=== PATIENT | male | born 1950 | race Caucasian/White ===

== ENCOUNTER → 2018-01-23 | Outpatient (CLI) | payer OTHER ==
[~2018-01-23] MED LIST: REGADENOSON 0.4 MG/5 ML SYRINGE IV ONE
--- NOTE | 2018-01-23 11:38 | NM ---
"EXAMINATION TYPE: NM stress lexiscan cardiolite DATE OF EXAM: 01/23/2018 COMPARISON: NONE HISTORY: Chest pain, hypertension, diabetes, hyperlipidemia and history of tobacco abuse TECHNIQUE: After the intravenous administration of 10 mCi Tc 99m Sestamibi - Cardiolite resting SPEC T images acquired 45 minutes post injection. The patient received 0.4mg Lexiscan, 26.1 mCi Tc 99m Sestamibi - Stress images obtained [address] injection FINDINGS: Review of stress and rest SPECT images demonstrates a fixed defect of the inferior ventricular wall a nd lateral ventricular wall with reversible defect of the mid segments of the septal wall. There is a ssociated dyskinesis of the inferior wall without significant gastrointestinal or diaphragmatic uptak e adjacent to the inferior wall to indicate artifact. Therefore findings likely relate to remote infa rct. There is an estimated left ventricular ejection fraction of 62 %. TID is calculated at 0.9. IMPRESSION: 1. In addition to a fixed defect of the inferolateral wall from remote infarct there is a reversible mild perfusion defect of the septal wall in the distribution of the left anterior descending coronary artery indicating ischemia. 2. Estimated left ventricular ejection fraction of 62%. A Yellow level critical message alert has been initiated for Dev Ruiz MD via the [employer] 36 0 | Critical Results System on 01/23/2018 11:35 AM. This message alert has been sent to Dev Ruiz MD via the preferences provided by the clinician for the receipt of Radiology Critical Findings. [id number]."
--- NOTE | 2018-01-23 12:30 | EST ---
EXERCISE STRESS DATE OF SERVICE: 01/23/2018 AGE: 67 SEX: M HT: 6'0" WT: 330 PROTOCOL: Lexiscan Cardiolite Stress Test HEART RATE REST: 78 BLOOD PRESSURE REST: 142/84 MAXIMUM HEART RATE ACHIEVED: 95 MAXIMUM BLOOD PRESSURE: 142/84 INDICATIONS: Chest pain. CLINICAL INFORMATION: STRESS DATA: Pretesting physical examination showed heart rate of 78, pressure is 142/84 mmHg. Baseline EKG showed sinus mechanism; 0.4 mg of Lexiscan was given over 15 seconds per protocol. The max heart rate was 95 beats per minute. Maximum pressure was 142/84 mmHg. Clinically, the patient did not have any symptoms of chest pain or discomfort and the EKG did not show any significant ST or T-wave abnormalities. CONCLUSION: 1. Nondiagnostic electrocardiogram stress test. 2. Please follow up on the Cardiolite portion on separate report. MMODL / IJN: [id number] /
--- NOTE | 2018-01-24 14:04 | ECHOF ---
Referral Reason:R07.9 Chest Pain MEASUREMENTS -------- HEIGHT: 182.9 cm WEIGHT: 149.7 kg BP: RVIDd: 3.9 cm (< 3.3) IVSd: 1.0 cm (0.6 - 1.1) LVIDd: 5.5 cm (3.9 - 5.3) LVPWd: 1.1 cm (0.6 - 1.1) IVSs: 1.3 cm LVIDs: 3.6 cm LVPWs: 1.3 cm LAESV Index (A-L): 23.76 ml/m Ao Diam: 3.5 cm (2.0 - 3.7) AV Cusp: 2.0 cm (1.5 - 2.6) LA Diam: 2.3 cm (2.7 - 3.8) MV E Sean: 0.55 m/s MV DecT: 312 ms MV A Sean: 0.78 m/s MV E/A Ratio: 0.70 RAP: 5.00 mmHg RVSP: 34.42 mmHg FINDINGS -------- Sinus rhythm. This was a technically difficult study with suboptimal views. The left ventricular size is normal. There is borderline concentric left ventricular hypertrophy. Overall left ventricular systolic function is low-normal with, an EF between 50 - 55 %. The right ventricle is moderately enlarged. Normal LA size by volume 22+/-6 ml/m2. RA appears enlarged. 3ml of Lumason was utilized for enhancement of images. Aortic valve is trileaflet and is mildly thickened. There is no evidence of aortic regurgitation. There is no evidence of aortic stenosis. The mitral valve leaflets are mildly thickened. Mild mitral annular calcification present. There is trace to mild mitral regurgitation. Trace tricuspid regurgitation present. There is borderline pulmonary hypertension. The right vent ricular systolic pressure, as measured by Doppler, is 34.42mmHg. Trace/mild (physiologic) pulmonic regurgitation. The aortic root size is normal. IVC Not well visulized. There is no pericardial effusion. CONCLUSIONS -------- 1. Sinus rhythm. 2. This was a technically difficult study with suboptimal views. 3. The left ventricular size is normal. 4. There is borderline concentric left ventricular hypertrophy. 5. Overall left ventricular systolic function is low-normal with, an EF between 50 - 55 %. 6. The right ventricle is moderately enlarged. 7. Normal LA size by volume 22+/-6 ml/m2. 8. RA appears enlarged. 9. 3ml of Lumason was utilized for enhancement of images. 10. Aortic valve is trileaflet and is mildly thickened. 11. The mitral valve leaflets are mildly thickened. 12. Mild mitral annular calcification present. 13. There is trace to mild mitral regurgitation. 14. Trace tricuspid regurgitation present. 15. There is borderline pulmonary hypertension. 16. The right ventricular systolic pressure, as measured by Doppler, is 34.42mmHg. 17. Trace/mild (physiologic) pulmonic regurgitation. 18. The aortic root size is normal. 19. IVC Not well visulized. 20. There is no pericardial effusion. GLOVE EXAMINER: Niko Barros RDCS
== END | disposition home or self-care (01) ==
LOC: RADECHMAIN 08:07
PROVIDERS: ATTEND Family Medicine
DX: I08.1 Rheumatic disorders of both mitral and tricuspid valves (principal); R07.9 Chest pain, unspecified; I25.2 Old myocardial infarction
CPT/HCPCS: 93017; 78452; 93005; C8929; A9500; J2785; Q9950; 93306

== ENCOUNTER → 2018-01-30 | Outpatient (CLI) | payer OTHER ==
[2018-01-30 17:50] LABS: HCT 47.7 % (39.0-53.0); HGB 14.6 gm/dL (13.0-17.5); MCH 28.5 pg (25.0-35.0); MCHC 30.6 g/dL (31.0-37.0); MCV 93.3 fL (80.0-100.0); Platelet Count 286 k/uL (150-450); RBC 5.12 m/uL (4.30-5.90); RDW 13.4 % (11.5-15.5); WBC 7.9 k/uL (3.8-10.6)
[2018-01-30 18:01] LABS: Anion Gap 9 mmol/L; Blood Urea Nitrogen 27 mg/dL (9-20); Carbon Dioxide 28 mmol/L (22-30); Chloride 101 mmol/L (98-107); Sodium 138 mmol/L (137-145)
== END | disposition home or self-care (01) ==
LOC: LABPAT 17:00
PROVIDERS: ATTEND Internal Medicine Cardiovascular Disease
DX: Z01.812 Encounter for preprocedural laboratory examination (principal); E78.2 Mixed hyperlipidemia; I10 Essential (primary) hypertension; R07.2 Precordial pain
CPT/HCPCS: 36415; 80051; 82565; 84520; 85027

== ENCOUNTER 2018-02-25 07:57 | Day surgery (SDC) | payer MEDICARE, OTHER ==
[2018-02-19 14:49] VITALS: BMI 48.8
[~2018-02-25 07:57] MED LIST changes: +ALPRAZolam 0.25 MG TAB PO PRN; +ALPRAZolam 0.5 MG TAB PO PRN; +ASPIRIN 325 MG TAB PO STA; +ATORVASTATIN 80 MG TAB PO STA; +NITROGLYCERIN SL TABS 0.4 MG TAB SUBLINGUAL PRN; -REGADENOSON 0.4 MG/5 ML SYRINGE IV ONE; +SODIUM CHLORIDE 0.9% 1,000 ML IV ONE; +SODIUM CHLORIDE 0.9% 1,000 ML in EMPTY BAG 1 BAG IV ONE
[2018-02-25 08:47] LABS: Glucose,Whole Blood 254 mg/dL (75-99)
[2018-02-25] MEDS ORDERED: INSULIN ASPART 100 UNIT/ML 1 ML 10 ML VIAL SQ ONE ×2 (08:55→09:59)
[2018-02-25] MEDS ORDERED: fentaNYL (PF) 50 MCG/ML 2 ML AMP ONE ×2 (08:59→11:37)
[2018-02-25] MEDS ORDERED: LIDOCAINE 1% INJ 10MG/ML (20 ML MDV) ONE (08:59)
[2018-02-25] MEDS ORDERED: MIDAZOLAM 2 MG/2 ML VIAL ONE ×2 (08:59→11:37)
[2018-02-25] MEDS ORDERED: MIDAZOLAM 2 MG/2 ML VIAL IVP ONE ×3 (09:03→11:48)
[2018-02-25] MEDS ORDERED: fentaNYL (PF) 50 MCG/ML 2 ML AMP IVP ONE ×2 (09:05)
[2018-02-25] MEDS ORDERED: methylPREDNISolone SOD SUCCI 125 MG/2 ML VIAL ONE (09:06)
[2018-02-25] MEDS ORDERED: diphenhydrAMINE 50 MG/ML 1 ML VIAL ONE (09:06)
[2018-02-25] MEDS ORDERED: LIDOCAINE 1% INJ 10MG/ML (20 ML MDV) SQ ONE (09:07)
[2018-02-25] MEDS ORDERED: LIDOCAINE 1% (PF) 10MG/ML VIAL SQ ONE (09:07)
[2018-02-25] MEDS ORDERED: diphenhydrAMINE 50 MG/ML 1 ML VIAL IVP ONE (09:08)
[2018-02-25] MEDS ORDERED: methylPREDNISolone SOD SUCCI 125 MG/2 ML VIAL IVP ONE (09:08)
[2018-02-25] MEDS ORDERED: IOPAMIDOL-370 125ML BTL INJ ONE ×2 (09:36→11:59)
--- NOTE | 2018-02-25 09:58 | CC ---
CARDIAC CATHETERIZATION REPORT INDICATION: Precordial chest pain with abnormal stress test showing ischemia involving the septum. PROCEDURE NOTE: After obtaining informed consent, left heart catheterization and coronary angiogram were performed via the right femoral artery using standard Ammon catheters. Patient tolerated the procedure well without any obvious immediate complications. A femoral angiogram was performed and decision was made for manual hemostasis. Patient received moderate conscious sedation. The total sedation time was 13 minutes. FINDINGS: 1. HEMODYNAMICS: Left ventricular end-diastolic pressure is 14-16 mm. There is no significant gradient across the aortic valve. 2. LEFT VENTRICULOGRAM: Left ventriculogram is not performed. 3. ANGIOGRAPHIC DATA: 4. LEFT MAIN CORONARY ARTERY: Left main coronary artery is a normal-sized vessel and is free of stenosis. It divides into left anterior descending coronary artery and circumflex coronary artery. LAD shows a mild atherosclerotic plaque in its proximal and midportion. Circumflex coronary artery and its branches are free of significant stenosis. Right coronary artery is a large dominant vessel that shows [id number] atherosclerotic plaque involving the proximal part. At its worst, there is a 50%-60% focal stenosis, but there is a long area of irregular ectatic changes. CONCLUSION: A 50%-60% stenosis involving right coronary artery. PLAN: I am going to review the angiographic data with Dr. Benton, the on-call glue drier operator, and decide on whether to do angioplasty of the right coronary artery or treat him with optimal medical therapy. I discussed these issues at length with the patient. He understands and in agreement with the plans. MMMICHELLE / NASIRN: [id number] /
[2018-02-25 10:02] LABS: Glucose,Whole Blood 260 mg/dL (75-99)
[2018-02-25] MEDS ORDERED: BIVALIRUDIN BOLUS 250 MG/50 ML IV ONE (11:48)
[2018-02-25] MEDS ORDERED: IV FLUID CONTINUATION 1,000 ML IV ONE (11:49)
[2018-02-25] MEDS ORDERED: BIVALIRUDIN 250 MG in SODIUM CHLORIDE 0.9% 50 ML IV ONE ×2 (11:50→11:57)
[2018-02-25] MEDS ORDERED: ADENOSINE 180 MG in SODIUM CHLORIDE 0.9% 30 ML IVP ONE (11:59)
[2018-02-25] MEDS ORDERED: RX INFO: IV CONTRAST WAS GIVEN 1 EACH MISC MISCELLANE PRN (12:05)
[2018-02-25] MEDS ORDERED: SODIUM CHLORIDE 0.9% 1,000 ML IV SCH (12:15)
--- NOTE | 2018-02-25 12:28 | CC ---
CARDIAC CATHETERIZATION REPORT FRACTIONAL FLOW RESERVE: DATE OF SERVICE: 02/25/2018 PERFORMING PHYSICIAN: Haja Benton MD, Lead Setter. PROCEDURE PERFORMED: Fractional flow reserve of the RCA. INDICATION: This is a pleasant 67-year-old gentleman who sees Dr. Levy in the office as an outpatient who was experiencing chest discomfort and underwent heart catheterization by Dr. Levy today and that revealed intermediate to severe lesion involving the mid RCA, which seems to be eccentric lesion. Because of that, fractional flow reserve was advised. APPROACH: Right common femoral artery. COMPLICATION: None. LEVEL OF SEDATION: Moderate with sedation length of 15 minutes. PROCEDURE DESCRIPTION: please refer to diagnostic heart catheterization was performed by Dr. Levy earlier today. Anticoagulation was initiated using Angiomax. After zeroing the Doppler wire and equalizing between the Doppler wire and the guiding catheter which was JR4 guiding catheter, we did an FFR per IV adenosine infusion. FFR came in to be 0.86, which is nonischemic. CONCLUSION: Fractional flow reserve (FFR) of the right coronary artery was performed and came in to be nonischemic at 0.86. POSTPROCEDURE MANAGEMENT: Medical treatment and follow up with the patient. MMODL / IJN: [id number] /
[2018-02-25 17:45] LABS: Glucose,Whole Blood 365 mg/dL (75-99)
[2018-02-25 23:11] VITALS: BP 115/68; PULSE 97; RESP 18; TEMP 97.9
== END 2018-02-25 22:00 | disposition home or self-care (01) ==
LOC: CATHCVL 07:57 → 3OBS 12:01 → CATHCVL 22:00
PROVIDERS: ATTEND Internal Medicine Cardiovascular Disease
DX: I25.10 Atherosclerotic heart disease of native coronary artery without angina pectoris (principal); R94.39 Abnormal result of other cardiovascular function study; E78.2 Mixed hyperlipidemia; I10 Essential (primary) hypertension; E11.9 Type 2 diabetes mellitus without complications; I48.91 Unspecified atrial fibrillation; E66.9 Obesity, unspecified; Z68.42 Body mass index [BMI] 45.0-49.9, adult; Z79.84 Long term (current) use of oral hypoglycemic drugs; Z79.82 Long term (current) use of aspirin; Z79.899 Other long term (current) drug therapy; Z88.5 Allergy status to narcotic agent; Z91.09 Other allergy status, other than to drugs and biological substances
CPT/HCPCS: 93571; 93454; 93458; C1887; C1894 ×2; C1769; J2250; J1200; J2930; J2001 ×2; J3010; J0583; J0153; Q9967

== ENCOUNTER → 2018-04-01 | Outpatient (CLI) | payer MEDICARE, OTHER ==
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
[2018-04-01 16:15] VITALS: BP 139/87; PULSE 81; TEMP 98; BMI 49.4
== END | disposition home or self-care (01) ==
LOC: BARWHC3 14:03
PROVIDERS: ATTEND Surgery
DX: E66.01 Morbid (severe) obesity due to excess calories (principal); Z87.891 Personal history of nicotine dependence; Z68.42 Body mass index [BMI] 45.0-49.9, adult
CPT/HCPCS: 99211

== ENCOUNTER → 2018-12-15 | Outpatient (CLI) | payer MEDICARE, OTHER ==
--- NOTE | 2018-12-15 17:54 | CT ---
EXAMINATION TYPE: CT abdomen pelvis wo con DATE OF EXAM: 12/15/2018 COMPARISON: 05/26/2016 INDICATION: Generalized abdominal pain, constipated. R 10.9, R 10.64 DLP: 3177 mGycm, Automated exposure control for dose reduction was used. CONTRAST: None Study performed with Oral Contrast TECHNIQUE: Axial images were obtained from above the diaphragm to the pubic rami in the axial plane a t 5 mm thick sections. Reconstructed images are reviewed on the computer in the coronal plane. FINDINGS: Limited CT sections are obtained the lung bases. The lung bases are clear. Coronary artery calcific ation is present. CT ABDOMEN: Liver: Normal Spleen: Normal Pancreas: Normal Adrenal glands: Right adrenal gland is a 1.4 cm transverse thickening of the external limb. The left adrenal gland appears unremarkable. Gallbladder: Gallstones are present. Kidneys: No masses are evident. No hydronephrosis is present. There is a 6 cm cyst measuring 20 Luke nsfield units on the mid to inferior lateral left kidney. No renal stones are evident. Aorta: Vascular calcification is within the aorta. Inferior vena cava: Normal. CT PELVIS: Loops of bowel within the abdomen and pelvis are normal. There are loops of bowel which are incom pletely distended or lack oral contrast limiting their evaluation. Fecal debris is within the ascendi ng colon and proximal transverse colon. Some equilibrium is within the distal colon. Appendix: Not visualized. No suspicious inflammatory changes or dilated tubular structures are eviden t. Urinary bladder: Normal. Genitourinary structures: Prostate calcification is present. Osseous structures: No suspicious lytic or sclerotic lesions. There is a left hip medullary alirio. Dege nerative disc changes are within the lower lumbar spine IMPRESSIONS: 1. There may be a small adenoma on the right adrenal gland. 2. Cholelithiasis. 3. Mild fecal retention.
== END | disposition home or self-care (01) ==
LOC: RADCTMAIN 09:53
PROVIDERS: ATTEND Family Medicine
DX: K80.20 Calculus of gallbladder without cholecystitis without obstruction (principal); K59.00 Constipation, unspecified; Z88.5 Allergy status to narcotic agent; Z91.048 Other nonmedicinal substance allergy status
CPT/HCPCS: 74176

== ENCOUNTER 2018-12-29 12:19 | Emergency (ER) | payer MEDICARE, OTHER ==
[2018-12-29 12:45] VITALS: BP 116/80; PULSE 83; RESP 20; TEMP 98.9
--- NOTE | 2018-12-29 15:03 | XR ---
EXAMINATION TYPE: XR KUB DATE OF EXAM: 12/29/2018 COMPARISON: NONE HISTORY: Pain TECHNIQUE: Single supine KUB image of the abdomen is obtained FINDINGS: Small bowel demonstrates no evidence for dilatation or air fluid levels. Gas and fecal material is seen in non-distended colon. No convincing evidence for pneumoperitoneum. No unusual calcifications. The lung bases are clear. The osseous structures are intact. IMPRESSION: 1. Overall nonobstructive bowel gas pattern.
[2018-12-29] MEDS ORDERED: MAGNESIUM CITRATE 296 ML BOTTLE PO ONE (15:52)
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
== END 2018-12-29 16:05 | disposition home or self-care (01) ==
LOC: EC 12:19
DX: K59.00 Constipation, unspecified (principal); Z53.29 Procedure and treatment not carried out because of patient's decision for other reasons; I48.91 Unspecified atrial fibrillation; E11.9 Type 2 diabetes mellitus without complications; E78.5 Hyperlipidemia, unspecified; I10 Essential (primary) hypertension; M19.90 Unspecified osteoarthritis, unspecified site; Z86.711 Personal history of pulmonary embolism; Z86.718 Personal history of other venous thrombosis and embolism; Z87.891 Personal history of nicotine dependence; Z79.82 Long term (current) use of aspirin; Z79.84 Long term (current) use of oral hypoglycemic drugs; Z79.899 Other long term (current) drug therapy; Z88.5 Allergy status to narcotic agent; Z88.8 Allergy status to other drugs, medicaments and biological substances; Z91.048 Other nonmedicinal substance allergy status; Z96.652 Presence of left artificial knee joint
CPT/HCPCS: 74018; 99284

== ENCOUNTER 2019-01-02 15:09 | Emergency (ER) | payer MEDICARE, OTHER ==
[2019-01-02 15:22] VITALS: RESP 18
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
--- NOTE | 2019-01-02 17:35 | XR ---
EXAMINATION TYPE: XR abdomen complete w decub total 5 views DATE OF EXAM: 01/02/2019 COMPARISON: NONE HISTORY: Pain, impacted/constipated TECHNIQUE: Left lateral decubitus and supine and upright views were obtained. FINDINGS: There is no evidence for pneumoperitoneum. The bowel gas pattern is unremarkable as there is air throughout nondilated small and large bowel. T he volume of stool appears mildly prominent. No sizeable air fluid levels. No mass effects are seen. No unusual calcifications. IMPRESSION: No acute radiographic process.
[2019-01-02 19:47] VITALS: BP 110/87; PULSE 86; TEMP 98.5
[2019-01-02] MEDS ORDERED: LACTULOSE 20 GM/30 ML CUP PO ONE (20:00)
== END 2019-01-02 19:53 | disposition home or self-care (01) ==
LOC: EC 15:09
DX: K59.00 Constipation, unspecified (principal); I48.91 Unspecified atrial fibrillation; E11.9 Type 2 diabetes mellitus without complications; E78.5 Hyperlipidemia, unspecified; I10 Essential (primary) hypertension; M19.90 Unspecified osteoarthritis, unspecified site; Z96.652 Presence of left artificial knee joint; Z87.891 Personal history of nicotine dependence; Z79.82 Long term (current) use of aspirin; Z79.84 Long term (current) use of oral hypoglycemic drugs; Z79.899 Other long term (current) drug therapy; Z88.5 Allergy status to narcotic agent; Z91.048 Other nonmedicinal substance allergy status
CPT/HCPCS: 74021; 99284

== ENCOUNTER 2019-03-26 12:23 | Day surgery (SDC) | payer MEDICARE, OTHER ==
[2019-03-24 12:52] VITALS: BMI 45.4
[~2019-03-26 12:23] MED LIST changes: -ALPRAZolam 0.25 MG TAB PO PRN; -ALPRAZolam 0.5 MG TAB PO PRN; -ASPIRIN 325 MG TAB PO STA; -ATORVASTATIN 80 MG TAB PO STA; +LACTATED RINGERS 1,000 ML IV SCH; -NITROGLYCERIN SL TABS 0.4 MG TAB SUBLINGUAL PRN; -SODIUM CHLORIDE 0.9% 1,000 ML IV ONE; -SODIUM CHLORIDE 0.9% 1,000 ML in EMPTY BAG 1 BAG IV ONE
[2019-03-26 12:56] VITALS: RESP 16; TEMP 97.5
[2019-03-26] MEDS ORDERED: LIDOCAINE 1% 20 ML VIAL (10MG/ML) FOR IV START INTRADERMA ONE (13:01)
[2019-03-26 13:04] LABS: Glucose,Whole Blood 116 mg/dL (75-99)
[2019-03-26] MEDS ORDERED: PROPOFOL 10 MG/ML 20 ML VIAL IV ONE (13:50)
[2019-03-26] MEDS ORDERED: LIDOCAINE 1% INJ 10MG/ML (20 ML MDV) ONE (13:50)
--- NOTE | 2019-03-26 14:20 | P.PCN ---
Date of Procedure: 03/26/19 Procedure(s) Performed: PREOPERATIVE DIAGNOSIS: GERD, change in bowel habits POSTOPERATIVE DIAGNOSIS: Minimal gastritis, diverticulosis, rectal polyp PROCEDURE: 1. EGD with biopsy 2. Colonoscopy with snare polypectomy ANESTHESIA: MAC SURGEON: Orestes Bernal M.D. SPECIMENS: Antrum, rectal polyp ENDOSCOPIC PROCEDURE: The patient was on the endoscopy table in the left decubitus position. The Olympus gastroscope was inserted into the oropharynx and passed under direct visualization to the region of the third portion of the duodenum. From that point the scope was slowly withdrawn inspecting all surfaces carefully. There were no neoplastic inflammatory or polypoid lesions throughout the duodenum. The pylorus was widely patent. The stomach was carefully inspected. There was minimal gastritis present. A biopsy of the antrum took place to rule out H. pylori. Retroflexion revealed a normal hiatus. The esophagus was then carefully examined. There were no neoplastic inflammatory or polypoid lesions throughout the visualized esophagus. The patient was kept on the endoscopy table in the left decubitus position. The Olympus colonoscope was inserted into the anus and passed under direct visualization to the base of the cecum. The appendiceal orifice was visualized. From that point the scope was slowly withdrawn inspecting all surfaces carefully. There were no neoplastic inflammatory or polypoid lesions throughout the cecum, ascending, transverse, descending, and sigmoid colon. In the rectum a small polyp was identified and removed using the snare with cautery technique. The remainder of the rectum was normal. There was mild left-sided diverticulosis present. Digital rectal examination was normal. The patient was taken to the recovery room in stable condition per anesthesia guidelines. RECOMMENDATIONS: Await biopsy results. Anticipate follow-up colonoscopy 5 years.
[2019-03-26 14:31] VITALS: PULSE 86
[2019-03-26 14:42] VITALS: BP 114/87
== END 2019-03-26 14:58 | disposition home or self-care (01) ==
LOC: ORWHC2ENDO 12:23
PROVIDERS: ATTEND Surgery
DX: K29.50 Unspecified chronic gastritis without bleeding (principal); D12.8 Benign neoplasm of rectum; K57.30 Diverticulosis of large intestine without perforation or abscess without bleeding; K21.9 Gastro-esophageal reflux disease without esophagitis; I10 Essential (primary) hypertension; E78.5 Hyperlipidemia, unspecified; E11.9 Type 2 diabetes mellitus without complications; K80.20 Calculus of gallbladder without cholecystitis without obstruction; M19.90 Unspecified osteoarthritis, unspecified site; I48.91 Unspecified atrial fibrillation; E66.01 Morbid (severe) obesity due to excess calories; Z68.42 Body mass index [BMI] 45.0-49.9, adult; Z86.718 Personal history of other venous thrombosis and embolism; Z86.711 Personal history of pulmonary embolism; Z87.891 Personal history of nicotine dependence; Z98.84 Bariatric surgery status; Z98.49 Cataract extraction status, unspecified eye; Z79.82 Long term (current) use of aspirin; Z79.899 Other long term (current) drug therapy; Z79.84 Long term (current) use of oral hypoglycemic drugs; Z88.5 Allergy status to narcotic agent; Z91.048 Other nonmedicinal substance allergy status
CPT/HCPCS: 88305; 45385; 43239; J2001; J2704

== ENCOUNTER → 2019-06-25 | Outpatient (CLI) | payer MEDICARE, OTHER ==
[2019-06-25 15:51] VITALS: BP 138/81; PULSE 68; TEMP 98.7; BMI 46.5
[2019-06-25 18:03] LABS: HCT 47.4 % (39.0-53.0); HGB 15.3 gm/dL (13.0-17.5); MCH 30.1 pg (25.0-35.0); MCHC 32.3 g/dL (31.0-37.0); Mean Platelet Volume 8.7; Platelet Count 315 k/uL (150-450); RBC 5.09 m/uL (4.30-5.90); WBC 9.2 k/uL (3.8-10.6)
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
[2019-06-26 00:11] LABS: African American GFR (CKD) 107.1 (60.0-200.0); Albumin 4.6 g/dL (3.80-4.90); Albumin/Globulin Ratio 2.19 (1.60-3.17); Anion Gap 10.1 mmol/L (4.00-12.00); BUN/Creat Ratio 17.5 Ratio (12.00-20.00); Calcium 9.7 mg/dL (8.7-10.3); Carbon Dioxide 27.9 mmol/L (21.6-31.8); Globulin 2.1 g/dL (1.6-3.3); Non-African American GFR(CKD) 92.4 (60.0-200.0); Potassium 4.5 mmol/L (3.5-5.5); Total Bilirubin 0.6 mg/dL (0.2-1.2); Total Protein 6.7 g/dL (6.2-8.2)
[2019-06-26 00:20] LABS: Folate, Serum 5.9 ng/mL
== END | disposition home or self-care (01) ==
LOC: BARWHC3 14:27
PROVIDERS: ATTEND Surgery
DX: E66.01 Morbid (severe) obesity due to excess calories (principal); F17.200 Nicotine dependence, unspecified, uncomplicated; Z68.42 Body mass index [BMI] 45.0-49.9, adult; Z90.49 Acquired absence of other specified parts of digestive tract; K90.89 Other intestinal malabsorption; E55.9 Vitamin D deficiency, unspecified
CPT/HCPCS: 84425; 80053; 82607; 82746; 83540; 85027; 82306; 83036; 93005; 36415; G0463; 99211

== ENCOUNTER 2019-10-09 16:13 | Inpatient (IN) | payer MEDICARE, OTHER ==
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
[2019-10-09] MEDS ORDERED: DILTIAZEM DRIP BOLUS FROM BAG 1 MG SOLN IV ONE (16:47)
[2019-10-09 16:53] LABS: Basophils % (A) 0 %; Eosinophils # (A) 0.3 k/uL (0-0.7); Eosinophils % (A) 3 %; HCT 48.5 % (39.0-53.0); HGB 15.8 gm/dL (13.0-17.5); Lymphocytes # (A) 2.6 k/uL (1.0-4.8); Lymphocytes % (A) 28 %; MCH 30.4 pg (25.0-35.0); MCHC 32.5 g/dL (31.0-37.0); MCV 93.5 fL (80.0-100.0); Mean Platelet Volume 9.1; Monocytes # (A) 0.6 k/uL (0-1.0); Monocytes % (A) 6 %; Neutrophils # (A) 5.7 k/uL (1.3-7.7); Neutrophils % (A) 60 %; Platelet Count 328 k/uL (150-450); RBC 5.19 m/uL (4.30-5.90); RDW 13.2 % (11.5-15.5); WBC 9.5 k/uL (3.8-10.6)
[2019-10-09] MEDS ORDERED: DILTIAZEM 125 MG in SODIUM CHLORIDE 0.9% 100 ML IV SCH (17:00)
[2019-10-09 17:01] LABS: Prothrombin Time 10.4 sec (9.0-12.0)
--- NOTE | 2019-10-09 17:02 | XR ---
EXAMINATION TYPE: XR chest 2V DATE OF EXAM: 10/09/2019 COMPARISON: 07/29/2014 HISTORY: 69-year-old male dysrhythmia TECHNIQUE: PA and lateral views FINDINGS: Heart borderline enlarged. Mild elongation/ectasia of the thoracic aorta. Strandy atelectasis lower l ungs. No consolidation or pleural effusion. IMPRESSION: Borderline heart size. Strandy bibasilar atelectasis. Otherwise, no definite acute process.
[2019-10-09 17:06] LABS: ALT 24 U/L (4-49); AST 25 U/L (17-59); African American GFR (CKD) >90 (>60 ml/min/1.73 sqM); Albumin 4.3 g/dL (3.5-5.0); Alkaline Phosphatase 59 U/L (38-126); Anion Gap 8 mmol/L; Blood Urea Nitrogen 18 mg/dL (9-20); Calcium 9.7 mg/dL (8.4-10.2); Carbon Dioxide 26 mmol/L (22-30); Chloride 104 mmol/L (98-107); Glucose 101 mg/dL (74-99); Non-African American GFR(CKD) >90 (>60 ml/min/1.73 sqM); Potassium 4.5 mmol/L (3.5-5.1); Sodium 138 mmol/L (137-145); Total Bilirubin 0.8 mg/dL (0.2-1.3); Total Protein 7.3 g/dL (6.3-8.2)
[2019-10-09] MEDS ORDERED: HEPARIN SODIUM,PORCINE 5,000 UNIT/ML 1 ML VIAL IV ONE (17:41)
[2019-10-09] MEDS ORDERED: HEPARIN SOD,PORK IN 0.45% NACL 25,000 UNIT in 0.45% NACL 1 250ML.BAG IV SCH (17:45)
[2019-10-09 19:35] LABS: Glucose,Whole Blood 100 mg/dL (75-99)
[2019-10-09] MEDS ORDERED: ATORVASTATIN 40 MG TAB PO SCH (21:00)
[2019-10-09] MEDS ORDERED: ASCORBIC ACID 2000 MG PO SCH (21:00)
[2019-10-09] MEDS: INSULIN ASPART (NovoLOG) 100 UNIT/ML VIAL SQ SCH (22:01)
[2019-10-10] MEDS ORDERED: ACETAMINOPHEN TAB 325 MG TAB PO PRN ×2 (03:29→04:09)
[2019-10-10 06:09] LABS: Glucose,Whole Blood 131 mg/dL (75-99)
[2019-10-10] MEDS: INSULIN ASPART (NovoLOG) 100 UNIT/ML VIAL SQ SCH ×3 (06:10→15:20)
[2019-10-10] MEDS: GLIMEPIRIDE 4 MG TAB PO SCH ×2 (06:30→15:20)
[2019-10-10] MEDS: LISINOPRIL 20 MG TAB PO SCH ×2 (08:11→11:50)
[2019-10-10] MEDS ORDERED: PANTOPRAZOLE 40 MG TABLET PO SCH (09:00)
[2019-10-10] MEDS ORDERED: CHOLECALCIFEROL 1,000 UNIT TAB PO SCH (09:00)
[2019-10-10] MEDS ORDERED: CYANOCOBALAMIN 500 MCG TAB PO SCH (09:00)
[2019-10-10] MEDS ORDERED: ASPIRIN 81 MG PO SCH (09:00)
[2019-10-10] MEDS ORDERED: METOPROLOL TARTRATE 25 MG TAB PO SCH (10:00)
[2019-10-10] MEDS ORDERED: APIXABAN 5 MG TAB PO SCH (10:00)
[2019-10-10 10:22] VITALS: RESP 18
[2019-10-10 11:28] LABS: Glucose,Whole Blood 161 mg/dL (75-99)
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
--- NOTE | 2019-10-10 13:14 | ECHOF ---
Referral Reason:afib MEASUREMENTS -------- HEIGHT: 182.9 cm WEIGHT: 158.8 kg BP: RVIDd: 4.6 cm (< 3.3) IVSd: 1.5 cm (0.6 - 1.1) LVIDd: 4.7 cm (3.9 - 5.3) LVPWd: 1.3 cm (0.6 - 1.1) IVSs: 2.0 cm LVIDs: 3.0 cm LVPWs: 1.7 cm LAESV Index (A-L): 24.21 ml/m Ao Diam: 3.4 cm (2.0 - 3.7) AV Cusp: 2.6 cm (1.5 - 2.6) MV EXCURSION: 19.913 mm (> 18.000) MV EF SLOPE: 114 mm/s (70 - 150) EPSS: 0.5 cm RAP: 5.00 mmHg RVSP: 23.58 mmHg FINDINGS -------- Atrial fibrillation. This was a technically difficult study with suboptimal views. Morbid Obesity The left ventricular size is normal. There is moderate concentric left ventricular hypertrophy. O verall left ventricular systolic function is low-normal with, an EF between 50 - 55 %. Left ventric ular fillimg pressure cannot be estimated due to Atrial fibrillation. The right ventricle is moderate to severely enlarged. Normal LA size by volume 22+/-6 ml/m2. The right atrium was not well visualized. 5.0mg of Lumason was utilized for enhancement of images Interatrial and interventricular septum intact. The aortic valve was not well visualized. There is no evidence of aortic regurgitation. There is no evidence of aortic stenosis. Mild mitral regurgitation is present. Mild tricuspid regurgitation present. There is no evidence of pulmonary hypertension. The right v entricular systolic pressure, as measured by Doppler, is 23.58mmHg. There is no pulmonic regurgitation present. The aortic root size is normal. IVC Not well visulized. There is no pericardial effusion. CONCLUSIONS -------- 1. Atrial fibrillation. 2. This was a technically difficult study with suboptimal views. 3. Morbid Obesity 4. The left ventricular size is normal. 5. There is moderate concentric left ventricular hypertrophy. 6. Overall left ventricular systolic function is low-normal with, an EF between 50 - 55 %. 7. Left ventricular fillimg pressure cannot be estimated due to Atrial fibrillation. 8. The right ventricle is moderate to severely enlarged. 9. Normal LA size by volume 22+/-6 ml/m2. 10. The right atrium was not well visualized. 11. 5.0mg of Lumason was utilized for enhancement of images 12. Interatrial and interventricular septum intact. 13. The aortic valve was not well visualized. 14. There is no evidence of aortic regurgitation. 15. There is no evidence of aortic stenosis. 16. Mild mitral regurgitation is present. 17. Mild tricuspid regurgitation present. 18. There is no evidence of pulmonary hypertension. 19. The right ventricular systolic pressure, as measured by Doppler, is 23.58mmHg. 20. There is no pulmonic regurgitation present. 21. The aortic root size is normal. 22. IVC Not well visulized. 23. There is no pericardial effusion. [employer]IATE: Tawny Ray RDCS
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
[2019-10-10 14:27] VITALS: BP 119/51; PULSE 75; TEMP 97.7
[2019-10-11] MEDS ORDERED: LISINOPRIL 10 MG TAB PO SCH (09:00)
== END 2019-10-10 16:08 | disposition home or self-care (01) | DRG 309 ==
LOC: EC 16:13 → 3SCARD 17:43
PROVIDERS: ADMIT Hospitalist; ATTEND Hospitalist
DX: I48.0 Paroxysmal atrial fibrillation (principal); Z68.42 Body mass index [BMI] 45.0-49.9, adult; Z11.59 Encounter for screening for other viral diseases; E11.9 Type 2 diabetes mellitus without complications; E66.9 Obesity, unspecified; E78.5 Hyperlipidemia, unspecified; F41.9 Anxiety disorder, unspecified; H91.90 Unspecified hearing loss, unspecified ear; I10 Essential (primary) hypertension; K59.00 Constipation, unspecified; E86.0 Dehydration; I25.10 Atherosclerotic heart disease of native coronary artery without angina pectoris; Z79.01 Long term (current) use of anticoagulants; Z79.82 Long term (current) use of aspirin; Z79.84 Long term (current) use of oral hypoglycemic drugs; Z79.899 Other long term (current) drug therapy; Z80.0 Family history of malignant neoplasm of digestive organs; Z80.8 Family history of malignant neoplasm of other organs or systems; Z86.711 Personal history of pulmonary embolism; Z86.718 Personal history of other venous thrombosis and embolism; Z87.891 Personal history of nicotine dependence; Z96.652 Presence of left artificial knee joint; M19.90 Unspecified osteoarthritis, unspecified site; Z98.42 Cataract extraction status, left eye; Z98.41 Cataract extraction status, right eye; N28.1 Cyst of kidney, acquired; L40.9 Psoriasis, unspecified; Z88.8 Allergy status to other drugs, medicaments and biological substances; Z88.5 Allergy status to narcotic agent; Z98.890 Other specified postprocedural states
CPT/HCPCS: 36415; 71046; 80053; 83735; 83880; 84443; 84484; 85025; 85610; 85730; 87635; 93005; 93306; 96365; 96366; 96368; 96376; 99291

== ENCOUNTER 2019-12-07 16:36 | Inpatient (IN) | payer MEDICARE, OTHER ==
[2019-12-07 17:19] LABS: Basophils % (A) 0 %; Eosinophils # (A) 0.3 k/uL (0-0.7); Eosinophils % (A) 4 %; HCT 50.8 % (39.0-53.0); HGB 16.2 gm/dL (13.0-17.5); Lymphocytes # (A) 2.2 k/uL (1.0-4.8); Lymphocytes % (A) 23 %; MCH 29.2 pg (25.0-35.0); MCV 91.3 fL (80.0-100.0); Monocytes # (A) 0.6 k/uL (0-1.0); Monocytes % (A) 6 %; Neutrophils # (A) 6.1 k/uL (1.3-7.7); Neutrophils % (A) 64 %; Platelet Count 294 k/uL (150-450); RBC 5.56 m/uL (4.30-5.90); RDW 13.3 % (11.5-15.5); WBC 9.5 k/uL (3.8-10.6)
[2019-12-07 17:27] LABS: INR 1.1 (<1.2); Partial Thromboplastin Time 24.9 sec (22.0-30.0); Prothrombin Time 10.9 sec (9.0-12.0)
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
--- NOTE | 2019-12-07 18:12 | XR ---
EXAMINATION TYPE: XR chest 2V DATE OF EXAM: 12/07/2019 COMPARISON: 10/09/2019 HISTORY: Short of breath TECHNIQUE: FINDINGS: Heart and mediastinum are normal. Lungs are clear. Diaphragm is normal. Bony thorax appears normal. IMPRESSION: Normal chest. No change.
[2019-12-07 18:24] LABS: ALT 20 U/L (4-49); AST 33 U/L (17-59); African American GFR (CKD) >90 (>60 ml/min/1.73 sqM); Albumin 4.4 g/dL (3.5-5.0); Alkaline Phosphatase 65 U/L (38-126); Anion Gap 11 mmol/L; Blood Urea Nitrogen 17 mg/dL (9-20); Calcium 9.8 mg/dL (8.4-10.2); Carbon Dioxide 24 mmol/L (22-30); Chloride 104 mmol/L (98-107); Glucose 103 mg/dL (74-99); Magnesium 1.9 mg/dL (1.6-2.3); Non-African American GFR(CKD) >90 (>60 ml/min/1.73 sqM); Potassium 4.7 mmol/L (3.5-5.1); Sodium 139 mmol/L (137-145); Total Bilirubin 1.1 mg/dL (0.2-1.3); Total Protein 7.6 g/dL (6.3-8.2)
[2019-12-07] MEDS ORDERED: DILTIAZEM DRIP BOLUS FROM BAG 1 MG SOLN IV ONE (20:34)
[2019-12-07] MEDS ORDERED: DILTIAZEM 125 MG in SODIUM CHLORIDE 0.9% 100 ML IV SCH (20:45)
[2019-12-07] MEDS ORDERED: NALOXONE 0.4 MG/ML 1 ML VIAL IV PRN (21:32)
[2019-12-07] MEDS ORDERED: SODIUM CHLORIDE 0.9% 1,000 ML IV SCH (21:45)
[2019-12-07 23:02] LABS: Glucose,Whole Blood 99 mg/dL (75-99)
[2019-12-08] MEDS ORDERED: GLIMEPIRIDE 4 MG TAB PO SCH (07:30)
[2019-12-08 08:05] LABS: Glucose,Whole Blood 119 mg/dL (75-99)
[2019-12-08] MEDS: APIXABAN 5 MG TAB PO SCH ×2 (08:06→23:06)
[2019-12-08] MEDS: ASPIRIN 81 MG PO SCH (08:06)
[2019-12-08] MEDS: ATORVASTATIN 40 MG TAB PO SCH (08:07)
[2019-12-08] MEDS: diazePAM 5 MG TAB PO SCH ×2 (08:07→23:07)
[2019-12-08] MEDS: INSULIN ASPART (NovoLOG) 100 UNIT/ML VIAL SQ SCH ×4 (08:08→23:07)
[2019-12-08] MEDS ORDERED: lisinopriL 20 MG TAB PO SCH (09:00)
[2019-12-08] MEDS ORDERED: AMIODARONE 360 MG in DEXTROSE 5% IN WATER 200 ML IV ONE ×2 (10:00)
[2019-12-08] MEDS ORDERED: DEXTROSE 5% IN WATER 100 ML with AMIODARONE 150 MG IV ONE (10:00)
[2019-12-08] MEDS: metFORMIN 500 MG TAB PO SCH ×2 (10:59→17:23)
[2019-12-08] MEDS: METOPROLOL SUCCINATE (ER) 25 MG TAB.ER.24H PO SCH (11:00)
[2019-12-08] MEDS: PANTOPRAZOLE 40 MG TABLET PO SCH (11:00)
[2019-12-08] MEDS: ESCITALOPRAM 5 MG TAB PO SCH (11:00)
[2019-12-08 11:26] LABS: Glucose,Whole Blood 142 mg/dL (75-99)
[2019-12-08] MEDS: SODIUM CHLORIDE 0.9% 1,000 ML IV SCH (13:58)
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
--- NOTE | 2019-12-08 14:55 | CONS ---
MARGARET Clarke is a 69-year-old gentleman with history of morbid obesity, hypertension, non- insulin-dependent diabetes, and paroxysmal atrial fibrillation who presents to hospital complaining of palpitations. The patient has had sustained palpitations over the last several weeks. He has known coronary artery disease involving right coronary artery that we are managing him medically. A recent echocardiogram on him shows an ejection fraction of 50-55 percent. The patient was admitted to hospital last month with episodes of paroxysmal atrial fibrillation. Patient underwent cardioversion once in the past. An EKG on this admission revealed that he is in atrial fibrillation with rapid ventricular rate. At the time of my evaluation, his heart rate is better controlled on Cardizem. The patient was started on Eliquis at his last visit and was sent home. At the time of my , he remains in AFIB with controlled ventricular rate. I advised the patient to undergo cardioversion, but I will first try him on IV amiodarone. Past medical history significant for persistent atrial fibrillation, hypertension, diabetes Medications at home include metformin, Protonix, Toprol-XL 25 daily, lisinopril 20 daily, Amaryl, Valium, Lipitor, aspirin, Eliquis, Lexapro. The patient is ALLERGIC TO CODEINE, IODINE, AND ADHESIVES. Family history is negative for premature coronary artery disease. Social history is negative for current smoking, EtOH abuse, or drug abuse. REVIEW OF SYSTEMS: HEENT is unremarkable. Cardiac as described above. Respiratory as described above. GI negative. negative. ALLERGY none. IMMUNOLOGY: Negative. SKIN negative. MUSCULOSKELETAL significant for arthritis. PSYCHOSOCIAL negative. ENDOCRINE negative. DERM negative. CONSTITUTIONAL: Negative. ONCOLOGICAL: Negative INCREMENT MANAGER negative. Rest of the system review is not relevant. On exam, comfortable at rest. Vital signs are stable. There is no jugular venous distention. Carotid upstroke is normal. There is no bruit. Chest exam reveals good air entry bilaterally. Heart exam reveals first and second heart sounds, irregular rhythm. No murmur. Abdomen is soft. Exam of extremities did not reveal any edema. Peripheral pulses are felt. He has chronic skin changes over the left leg. Labs show a hemoglobin of 16.2, platelet count is 294. Potassium is 4.7, creatinine is 0.6. Troponin is negative. ASSESSMENT: 1. Persistent atrial fibrillation with poorly controlled ventricular rate. 2. Hypertension. 3. Diabetes. 4. Morbid obesity. PLAN: Patient will be started on IV amiodarone. Continue his current medications. If he does not convert to sinus rhythm by tomorrow, we will consider AYSHA cardioversion. KIMBERLY / ENEDELIA: [id number] /
[2019-12-08 17:17] LABS: Glucose,Whole Blood 117 mg/dL (75-99)
[2019-12-08] MEDS: AMIODARONE 300 MG in DEXTROSE 5% IN WATER 250 ML IV SCH ×2 (17:52)
[2019-12-08 20:10] LABS: Glucose,Whole Blood 124 mg/dL (75-99)
[2019-12-08 21:48] LABS: Glucose,Whole Blood 157 mg/dL (75-99)
[2019-12-09] MEDS: SODIUM CHLORIDE 0.9% 1,000 ML IV SCH (03:26)
[2019-12-09] MEDS: AMIODARONE 300 MG in DEXTROSE 5% IN WATER 250 ML IV SCH ×2 (03:31)
[2019-12-09 06:16] LABS: Glucose,Whole Blood 77 mg/dL (75-99)
[2019-12-09] MEDS: INSULIN ASPART (NovoLOG) 100 UNIT/ML VIAL SQ SCH ×4 (07:15→22:52)
[2019-12-09] MEDS: metFORMIN 500 MG TAB PO SCH ×2 (07:16→17:48)
[2019-12-09 07:53] LABS: Glucose,Whole Blood 92 mg/dL (75-99)
[2019-12-09] MEDS: APIXABAN 5 MG TAB PO SCH ×2 (08:40→22:51)
[2019-12-09] MEDS ORDERED: lisinopriL 20 MG TAB PO SCH (09:00)
[2019-12-09] MEDS ORDERED: PROPOFOL 10 MG/ML 20 ML VIAL IV ONE (09:52)
[2019-12-09] MEDS ORDERED: SENNOSIDES 8.6 MG TAB PO PRN ×2 (10:05→10:14)
[2019-12-09] MEDS ORDERED: IV FLUID CONTINUATION 800 ML IV ONE (10:06)
[2019-12-09] MEDS ORDERED: SODIUM CHLORIDE 0.9% 1,000 ML IV SCH (10:30)
[2019-12-09] MEDS: ESCITALOPRAM 5 MG TAB PO SCH (11:36)
[2019-12-09] MEDS: PANTOPRAZOLE 40 MG TABLET PO SCH (11:37)
[2019-12-09] MEDS: AMIODARONE 200 MG TAB PO SCH ×2 (11:37→22:51)
[2019-12-09] MEDS: ATORVASTATIN 40 MG TAB PO SCH (11:37)
[2019-12-09] MEDS: lisinopriL 5 MG TAB PO SCH (11:37)
[2019-12-09] MEDS: ASPIRIN 81 MG PO SCH (11:37)
[2019-12-09] MEDS: METOPROLOL SUCCINATE (ER) 25 MG TAB.ER.24H PO SCH (11:37)
[2019-12-09 11:41] LABS: Glucose,Whole Blood 121 mg/dL (75-99)
--- NOTE | 2019-12-09 11:58 | PCN ---
PROCEDURE NOTE PROCEDURE: Transesophageal echocardiogram. INDICATIONS: Persistent atrial fibrillation, rule out intracardiac thrombus. This is a 69-year-old gentleman who presented to hospital with atrial fibrillation and had been on Eliquis for more than 3 weeks. I tried him on intravenous amiodarone. He did not convert to sinus rhythm. This morning I performed a transesophageal echo and cardioversion. After obtaining informed consent, transesophageal echocardiogram has been performed in left lateral position using an Omni plane probe. Local and IV sedation were obtained by the networking technician. FINDINGS: 1. There is no intracardiac thrombus within the left atrial appendage, left atrium, right atrium, right ventricle. 2. Left atrium appears severely enlarged. 3. Left ventricle has normal size, shows mild LV systolic dysfunction with an ejection fraction of around 45%. 4. Right atrium, right ventricle seen within normal limits. 5. Mitral valve shows mild to moderate central mitral regurgitation. 6. There is mild tricuspid regurgitation. 7. Aortic valve is a 3-leaflet valve. There is no evidence of aortic stenosis or regurgitation. 8. Aortic root appears normal. 9. Interatrial septum: There is no evidence of oquo-tn-[id number] shunt by color-flow Doppler or atakv-nj-feba shunt by ( ) saline contrast study. CONCLUSION: 1. No intracardiac thrombus. 2. Severe left atrial enlargement. PLAN: Patient will undergo cardioversion. KIMBERLY / IJN: [id number] /
--- NOTE | 2019-12-09 12:01 | PCN ---
PROCEDURE NOTE PROCEDURE: Cardioversion. After obtaining informed consent, making sure that there is no intracardiac thrombus with the transesophageal echo and ensuring that the patient is receiving anticoagulants, patient underwent cardioversion. He received initially 300 joules of synchronized DC current, did not convert to sinus rhythm. Went on to have 360 joules, even with that it was unsuccessful. The plan at this stage is to continue with amiodarone, send him home, bring him back and make another attempt at cardioversion. If that is unsuccessful, we may consider referring him for atrial fibrillation ablation. MMODL / IJN: [id number] /
--- NOTE | 2019-12-09 12:07 | LTR ---
December 09, 2019 to: Dr. Dev Ruiz Re: Vince Yepez Dear Dev, I performed transesophageal and cardioversion on Vince Yepez for persistent atrial fibrillation. A detailed report is enclosed for your records. In brief, we made two attempts at cardioversion but were unsuccessful. I will treat him with oral amiodarone and if he does not convert to sinus rhythm in the outpatient setting I will bring him back and make another attempt at cardioversion. Thank you for giving me the privilege heart sounds pleasant gentleman. Sincerely, MMODL / IJN: [id number] /
[2019-12-09] MEDS ORDERED: DIGOXIN 125 MCG TAB PO SCH (12:30)
[2019-12-09] MEDS: DIGOXIN 250 MCG/ML 2 ML AMP IVP SCH ×2 (12:40→17:48)
[2019-12-09] MEDS: GLIMEPIRIDE 4 MG TAB PO SCH (12:40)
[2019-12-09] MEDS: diazePAM 5 MG TAB PO SCH ×2 (12:40→22:51)
--- NOTE | 2019-12-09 13:21 | P.PN ---
Subjective 63-year-old male admitted for Chronic A. fib symptomatically atrial fibrillation with increased heart rate patient underwent cardioversion twice electrical after which patient remained in A. fib with heart rate in about 120s at rest, patient was started on digoxin at this time patient is also on amiodarone which will be continued. Constitutional: Denied any fatigue denied any fever. Cardio vascular: denied any chest pain, palpitations Gastrointestinal denied any nausea vomiting Pulmonary: Denied any shortness of breath cough Neurologic denied any new focal deficits All inpatient medications were reviewed and appropriate changes in these m edications as dictated in the interval history and assessment and plan. Objective - Vital Signs Vital signs: Vital Signs Temp 97.9 F 12/09/19 12:00 Pulse 120 H 12/09/19 12:00 Resp 18 12/09/19 12:00 BP 142/88 12/09/19 12:00 Pulse Ox 98 12/09/19 12:00 Intake & Output 12/08/19 12/09/19 12/09/19 18:59 06:59 18:59 Intake Total 241.25 Balance 241.25 Weight 158.757 kg 160.7 kg 160.7 kg Intake: Intake, IV Titration 241.25 Amount Amiodarone 300 mg In 241.25 Dextrose 5% in Water 250 ml @ 0.5 MG/MIN 25 mls/hr IV .Q10H [facility] Rx#: [id number] Other: Voiding Method Toilet Urinal # Voids 1 - Exam PHYSICAL EXAMINATION: GENERAL: The patient is alert and oriented x3, not in any acute distress. Obese HEENT: Pupils are round and equally reacting to light. EOMI. No scleral icterus. No conjunctival pallor. Normocephalic, atraumatic. No pharyngeal erythema. No thyromegaly. CARDIOVASCULAR: S1 and S2 present. No murmurs, rubs, or gallops. Irregularly irregular rhythm PULMONARY: Chest is clear to auscultation, no wheezing or crackles. ABDOMEN: Soft, nontender, nondistended, normoactive bowel sounds. No palpable organomegaly. MUSCULOSKELETAL: No joint swelling or deformity. EXTREMITIES: No cyanosis, clubbing, or pedal edema. NEUROLOGICAL: Gross neurological examination did not reveal any focal deficits. SKIN: No rashes. - Labs CBC & Chem 7: 12/07/19 17:07 12/07/19 18:00 Labs: Abnormal Lab Results - Last 24 Hours (Table) 12/08/19 12/08/19 12/08/19 Range/Units 17:16 20:09 21:46 POC Glucose (mg/dL) 117 H 124 H 157 H (75-99) mg/dL 12/09/19 Range/Units 11:40 POC Glucose (mg/dL) 121 H (75-99) mg/dL Assessment and Plan Plan: -Persistent atrial fibrillation with rapid ventricular rate, patient is on amiodarone beta david and also digoxin ration failed electrical cardioversion -Type 2 diabetes mellitus can you with metformin decreasing the dose of glimepiride -History of DVT in the past -Hypertension patient blood pressure is low normal cutting down the dose of the lisinopril --Hyperlipidemia -Osteoarthritis
[2019-12-09] MEDS ORDERED: METOPROLOL SUCCINATE (ER) 25 MG TAB.ER.24H PO STA (14:31)
[2019-12-09 16:48] LABS: Glucose,Whole Blood 133 mg/dL (75-99)
[2019-12-09 21:05] LABS: Glucose,Whole Blood 81 mg/dL (75-99)
[2019-12-09] MEDS: ACETAMINOPHEN TAB 325 MG TAB PO PRN (22:54)
[2019-12-10 06:14] LABS: Glucose,Whole Blood 118 mg/dL (75-99)
[2019-12-10] MEDS: metFORMIN 500 MG TAB PO SCH (06:36)
[2019-12-10] MEDS: ACETAMINOPHEN TAB 325 MG TAB PO PRN (06:38)
[2019-12-10 07:19] LABS: African American GFR (CKD) >90 (>60 ml/min/1.73 sqM); Anion Gap 10 mmol/L; Blood Urea Nitrogen 18 mg/dL (9-20); Calcium 9.6 mg/dL (8.4-10.2); Carbon Dioxide 27 mmol/L (22-30); Chloride 102 mmol/L (98-107); Glucose 114 mg/dL (74-99); Non-African American GFR(CKD) >90 (>60 ml/min/1.73 sqM); Sodium 139 mmol/L (137-145)
[2019-12-10] MEDS: ASPIRIN 81 MG PO SCH (08:45)
[2019-12-10] MEDS: AMIODARONE 200 MG TAB PO SCH (08:45)
[2019-12-10] MEDS: GLIMEPIRIDE 4 MG TAB PO SCH (08:45)
[2019-12-10] MEDS: APIXABAN 5 MG TAB PO SCH (08:45)
[2019-12-10] MEDS: ATORVASTATIN 40 MG TAB PO SCH (08:46)
[2019-12-10] MEDS: lisinopriL 5 MG TAB PO SCH (08:46)
[2019-12-10] MEDS: INSULIN ASPART (NovoLOG) 100 UNIT/ML VIAL SQ SCH (08:48)
[2019-12-10] MEDS: PANTOPRAZOLE 40 MG TABLET PO SCH (08:49)
[2019-12-10] MEDS ORDERED: METOPROLOL SUCCINATE (ER) 50 MG TAB.ER.24H PO SCH (09:00)
[2019-12-10] MEDS ORDERED: DIGOXIN 125 MCG TAB PO SCH (09:00)
[2019-12-10 09:48] VITALS: BP 148/99; PULSE 100; RESP 20; TEMP 98.7
--- NOTE | 2019-12-10 09:51 | P.PN ---
Subjective Progress Note Date: 12/10/19 This is a 69-year-old gentleman with morbid obesity, history of hypertension, diabetes, hyperlipidemia, paroxysmal atrial fibrillation, presented to the hospital with symptoms of palpitations. He was found to be in atrial fibrillation, underwent a AYSHA with attempt at cardioversion yesterday which was unsuccessful. He was seen and examined this morning, continues to be in atrial fibrillation, heart rate for the most part in the 70s, at times up to 110. He had not yet received his morning medications. He feels well, denies any palpitations in his breathing is stable. Blood pressure 138/98, afebrile, 95% on room air. Sodium 139, potassium 5.0, BUN 18 and creatinine 0.6. Objective - Vital Signs Vital signs: Vital Signs Temp 96.9 F L 12/10/19 04:00 Pulse 65 12/10/19 04:00 Resp 18 12/10/19 04:00 BP 137/99 12/10/19 04:00 Pulse Ox 95 12/10/19 04:00 Intake & Output 12/09/19 12/10/19 12/10/19 18:59 06:59 18:59 Intake Total 420 760 Output Total 300 600 Balance 120 -600 760 Weight 160.7 kg 158.8 kg Intake: Oral 420 760 Output: Urine 300 600 Other: Voiding Method Toilet Toilet Urinal Urinal # Voids 4 1 # Bowel Movements 1 1 - Exam PHYSICAL EXAMINATION: GENERAL: 69-year-old gentleman in no acute distress at the time of my examination HEENT: Head is atraumatic, normocephalic. Pupils equal, round. Sclera anicteric. Conjunctiva are clear. Mucous membranes of the mouth are moist. Ne ck is supple. There is no elevated jugular venous pressure. No carotid bruit is heard. HEART EXAMINATION: Heart S1, S2 irregularly irregular . No murmur or gallop heard. CHEST EXAMINATION: Lungs are clear to auscultation and precussion. No chest wall tenderness is noted on palpation or with deep breathing. ABDOMEN: Soft, obese, nontender. Bowel sounds are heard. No organomegaly noted. EXTREMITIES: 2+ peripheral pulses with no evidence of peripheral edema and no calf tenderness noted. NEUROLOGIC patient is awake, alert and oriented 3 . - Labs CBC & Chem 7: 12/07/19 17:07 12/10/19 05:42 Labs: Abnormal Lab Results - Last 24 Hours (Table) 12/09/19 12/09/19 12/10/19 Range/Units 11:40 16:46 05:42 Glucose 114 H (74-99) mg/dL POC Glucose (mg/dL) 121 H 133 H (75-99) mg/dL 12/10/19 Range/Units 06:13 Glucose (74-99) mg/dL POC Glucose (mg/dL) 118 H (75-99) mg/dL Assessment and Plan Plan: Assessment and Plan #1 persistent atrial fibrillation, status post attempt at cardioversion which was unsuccessful. #2 hypertension #3 diabetes #4 morbid obesity Plan From cardiology's perspective, patient may be able to be discharged home today on amiodarone and anticoagulation in the form of Eliquis. We will continue the amiodarone for one month, as an outpatient, patient will be brought back to the hospital at a second attempt of cardioversion. If it is again unsuccessful and patient remains in atrial fibrillation, he'll be referred to Dr. Jackson for possible ablation. Aspirin will be discontinued. This is all been explained to the patient in detail. DNP note has been reviewed, I agree with a documented findings and plan of care. Patient was seen and examined.
--- NOTE | 2019-12-10 10:16 | P.DS ---
Providers Date of admission: 12/07/19 21:32 Attending physician: Tai Zuniga MD Consults: 12/07/19 21:33 Consult Physician Routine Consulting Provider: Hadny Duron Consult Reason/Comments: Rapid atrial fibrillation Do you want consulting provider notified?: Yes Primary care physician: Dev Ruiz Hospital Course: 63-year-old male admitted for Chronic A. fib symptomatically atrial fibrillation with increased heart rate patient underwent cardioversion twice electrical after which patient remained in A. fib with heart rate in about 120s at rest, patient was started on digoxin at this time patient is also on amiodarone which will be continued. 12/10/2019 Patient heart rate is fairly well controlled compared to his admission but still high he'll feel a ablation. Patient is being discharged on amiodarone and digoxin along with metoprolol and patient will follow-up with the EP for possible ablation PHYSICAL EXAMINATION: GENERAL: The patient is alert and oriented x3, not in any acute distress. Obese HEENT: Pupils are round and equally reacting to light. EOMI. No scleral icterus. No conjunctival pallor. Normocephalic, atraumatic. No pharyngeal erythema. No thyromegaly. CARDIOVASCULAR: S1 and S2 present. No murmurs, rubs, or gallops. Irregularly irregular rhythm PULMONARY: Chest is clear to auscultation, no wheezing or crackles. ABDOMEN: Soft, nontender, nondistended, normoactive bowel sounds. No palpable organomegaly. MUSCULOSKELETAL: No joint swelling or deformity. EXTREMITIES: No cyanosis, clubbing, or pedal edema. NEUROLOGICAL: Gross neurological examination did not reveal any focal deficits. SKIN: No rashes. Assessment and Plan Plan: -Persistent atrial fibrillation with rapid ventricular rate, patient is on amiodarone beta david and also digoxin ration failed electrical cardioversion -Type 2 diabetes mellitus can you with metformin decreasing the dose of glimepiride -History of DVT in the past -Hypertension patient blood pressure is low normal cutting down the dose of the lisinopril --Hyperlipidemia -Osteoarthritis Patient Condition at Discharge: Fair Plan - Discharge Summary Discharge Rx Participant: No New Discharge Prescriptions: New Amiodarone [Cordarone] 200 mg PO BID #60 tab Digoxin [Lanoxin] 125 mcg PO DAILY #30 tab Glimepiride [Amaryl] 4 mg PO DAILY tab metFORMIN HCL [Glucophage] 1,000 mg PO BID-W/MEALS tab Metoprolol Succinate (ER) [Toprol XL] 50 mg PO DAILY #30 tab.er.24h Continue Atorvastatin Calcium [Lipitor] 40 mg PO DAILY Pantoprazole [Protonix] 40 mg PO DAILY Apixaban [Eliquis] 5 mg PO BID #60 tab Diazepam [Valium] 5 mg PO BID Escitalopram [Lexapro] 5 mg PO DAILY Changed Lisinopril [Zestril] 10 mg PO DAILY #0 Discontinued Glimepiride [Amaryl] 4 mg PO BID-W/MEALS Aspirin [Adult Low Dose Aspirin EC] 81 mg PO DAILY metFORMIN HCL 1,000 mg PO BID-W/MEALS Metoprolol Succinate (ER) [Toprol XL] 25 mg PO DAILY #30 tab Discharge Medication List Atorvastatin Calcium [Lipitor] 40 mg PO DAILY 02/04/18 [History] Pantoprazole [Protonix] 40 mg PO DAILY 10/09/19 [History] Apixaban [Eliquis] 5 mg PO BID #60 tab 10/10/19 [Rx] Diazepam [Valium] 5 mg PO BID 12/07/19 [History] Escitalopram [Lexapro] 5 mg PO DAILY 12/07/19 [History] Amiodarone [Cordarone] 200 mg PO BID #60 tab 12/10/19 [Rx] Digoxin [Lanoxin] 125 mcg PO DAILY #30 tab 12/10/19 [Rx] Glimepiride [Amaryl] 4 mg PO DAILY tab 12/10/19 [Rx] Lisinopril [Zestril] 10 mg PO DAILY #0 12/10/19 [Rx] Metoprolol Succinate (ER) [Toprol XL] 50 mg PO DAILY #30 tab.er.24h 12/10/19 [Rx] metFORMIN HCL [Glucophage] 1,000 mg PO BID-W/MEALS tab 12/10/19 [Rx] Follow up Appointment(s)/Referral(s): Dev Ruiz MD [Primary Care Provider] - 12/15/19 10:00 am (with Radha AMAYA) Owen Levy MD [STAFF PHYSICIAN] - 12/23/19 11:45 am Patient Instructions/Handouts: A-fib (Atrial Fibrillation) (DC), Cardioversion (DC) Discharge Disposition: HOME SELF-CARE
== END 2019-12-10 11:51 | disposition home or self-care (01) | DRG 309 ==
LOC: EC 16:36 → 3SCARD 21:32
PROVIDERS: ADMIT Internal Medicine; ATTEND Internal Medicine
PROC: B24BZZ4 Ultrasonography of Heart with Aorta, Transesophageal (ICD-10-PCS; 2019-12-09)
PROC: 5A2204Z Restoration of Cardiac Rhythm, Single (ICD-10-PCS; principal; 2019-12-09 10:00)
DX: I48.19 Other persistent atrial fibrillation (principal); Z68.42 Body mass index [BMI] 45.0-49.9, adult; M19.90 Unspecified osteoarthritis, unspecified site; E78.5 Hyperlipidemia, unspecified; E66.01 Morbid (severe) obesity due to excess calories; H91.90 Unspecified hearing loss, unspecified ear; E11.9 Type 2 diabetes mellitus without complications; L40.9 Psoriasis, unspecified; Z96.653 Presence of artificial knee joint, bilateral; I10 Essential (primary) hypertension; I25.10 Atherosclerotic heart disease of native coronary artery without angina pectoris; F41.9 Anxiety disorder, unspecified; I34.0 Nonrheumatic mitral (valve) insufficiency; Z11.59 Encounter for screening for other viral diseases; Z86.718 Personal history of other venous thrombosis and embolism; Z79.899 Other long term (current) drug therapy; Z86.711 Personal history of pulmonary embolism; Z79.82 Long term (current) use of aspirin; Z79.01 Long term (current) use of anticoagulants; Z79.4 Long term (current) use of insulin; Z91.041 Radiographic dye allergy status; Z88.5 Allergy status to narcotic agent; Z91.09 Other allergy status, other than to drugs and biological substances; Z90.49 Acquired absence of other specified parts of digestive tract; Z98.890 Other specified postprocedural states; Z98.42 Cataract extraction status, left eye; Z98.41 Cataract extraction status, right eye; Z87.891 Personal history of nicotine dependence; Z80.8 Family history of malignant neoplasm of other organs or systems; Z80.0 Family history of malignant neoplasm of digestive organs; Z90.89 Acquired absence of other organs
CPT/HCPCS: 36415; 71046; 80048; 80053; 83735; 84484; 85025; 85610; 85730; 92960; 93005; 93312; 93320; 93325; 96365; 96366; 96367; 96376; 99291

== ENCOUNTER → 2020-01-05 | Day surgery (SDC) | payer MEDICARE, OTHER ==
[2019-12-31 16:11] VITALS: BMI 47.5
[~2020-01-05] MED LIST changes: -LACTATED RINGERS 1,000 ML IV SCH; +LIDOCAINE 1% INJ 10MG/ML (20 ML MDV) ONE; +PROPOFOL 10 MG/ML 20 ML VIAL IV ONE; +SODIUM CHLORIDE 0.9% 1,000 ML IV SCH
[2020-01-05 08:29] LABS: Glucose,Whole Blood 147 mg/dL (75-99)
[2020-01-05 08:36] VITALS: TEMP 98.2
[2020-01-05 09:33] VITALS: RESP 14
[2020-01-05 10:41] VITALS: BP 117/74; PULSE 79
--- NOTE | 2020-01-26 12:47 | ECHOT ---
TRANSESOPHAGEAL ECHOCARDIOGRAM PROCEDURE PERFORMED: Transesophageal echo. INDICATION: Persistent atrial fibrillation. PROCEDURE NOTE: After obtaining informed consent, transesophageal echocardiogram is performed in left lateral position using an Omni plane probe. Local and IV sedation were obtained by the security flex officer. We used 2D, color and pulse Doppler evaluation. The patient tolerated the procedure well without any obvious immediate complications. FINDINGS: 1. Left ventricle has normal size and systolic function. 2. There is no intracardiac thrombus within the left atrial appendage, left atrium, right atrium, right ventricle. 3. There is moderate mitral regurgitation noted. 4. Right atrium and right ventricle appear mildly enlarged. 5. Interatrial septum: There is no evidence of nmdy-yi-zucme shunt by color-flow Doppler or mepsz-br-exok shunt by agitated saline contrast study. 6. Aortic valve is a 3-leaflet valve. There is no significant aortic stenosis or regurgitation. 7. There is mild tricuspid regurgitation. PLAN: Patient will undergo cardioversion. MMODL / IJN: [id number] /
--- NOTE | 2020-01-26 13:59 | PCN ---
PROCEDURE NOTE PROCEDURE PERFORMED: Cardioversion PROCEDURE IN DETAIL: After obtaining informed consent, making sure that the patient is adequately anticoagulated and confirming that the patient does not have an intracardiac thrombus, patient underwent electrical cardioversion with synchronized DC current. We made 2 attempts with 300 joules and 360 joules and patient did not convert to sinus rhythm. PLAN: We will discharge the patient home. Continue with the antiarrhythmics and make another attempt at cardioversion on him. KIMBERLY / NASIRN: [id number] /
== END ==
LOC: CATHCVL 08:06
PROVIDERS: ATTEND Internal Medicine Cardiovascular Disease
DX: I48.19 Other persistent atrial fibrillation (principal); I08.1 Rheumatic disorders of both mitral and tricuspid valves; I25.10 Atherosclerotic heart disease of native coronary artery without angina pectoris; I10 Essential (primary) hypertension; E78.2 Mixed hyperlipidemia; E11.9 Type 2 diabetes mellitus without complications; E66.9 Obesity, unspecified; M19.90 Unspecified osteoarthritis, unspecified site; Z86.711 Personal history of pulmonary embolism; Z86.718 Personal history of other venous thrombosis and embolism; Z79.01 Long term (current) use of anticoagulants; Z79.84 Long term (current) use of oral hypoglycemic drugs; Z79.899 Other long term (current) drug therapy; Z88.5 Allergy status to narcotic agent; Z91.041 Radiographic dye allergy status; Z68.42 Body mass index [BMI] 45.0-49.9, adult; Z72.0 Tobacco use
CPT/HCPCS: 93312; 93320; 93325; 92960; J2001; J2704

== ENCOUNTER → 2020-03-11 | Outpatient (CLI) | payer MEDICARE, OTHER ==
[2020-03-11 16:41] LABS: Basophils # (A) 0.1 k/uL (0-0.2); Basophils % (A) 1 %; Eosinophils # (A) 0.2 k/uL (0-0.7); Eosinophils % (A) 3 %; HCT 51.6 % (39.0-53.0); HGB 16.2 gm/dL (13.0-17.5); Lymphocytes # (A) 1.8 k/uL (1.0-4.8); Lymphocytes % (A) 23 %; MCHC 31.4 g/dL (31.0-37.0); MCV 92.3 fL (80.0-100.0); Mean Platelet Volume 8.2; Monocytes # (A) 0.5 k/uL (0-1.0); Monocytes % (A) 7 %; Neutrophils # (A) 5.1 k/uL (1.3-7.7); Neutrophils % (A) 65 %; Platelet Count 268 k/uL (150-450); RBC 5.59 m/uL (4.30-5.90); RDW 13.9 % (11.5-15.5)
[2020-03-12 01:23] LABS: Hemoglobin A1C 6.3 % (4.0-6.0)
[2020-03-12 09:11] LABS: African American GFR (CKD) 89.2 (60.0-200.0); Albumin 4.5 g/dL (3.80-4.90); Albumin/Globulin Ratio 2.05 (1.60-3.17); Anion Gap 13.7 mmol/L (4.00-12.00); Calcium 9.4 mg/dL (8.7-10.3); Carbon Dioxide 23.3 mmol/L (21.6-31.8); Chol/HDL Ratio 3.11; Globulin 2.2 g/dL (1.6-3.3); Potassium 4.4 mmol/L (3.5-5.5); Total Bilirubin 0.7 mg/dL (0.3-1.2); Total Protein 6.7 g/dL (6.2-8.2)
== END | disposition home or self-care (01) ==
LOC: LABWHC1 16:20
PROVIDERS: ATTEND Nurse Practitioner Family
DX: E11.65 Type 2 diabetes mellitus with hyperglycemia (principal); E78.5 Hyperlipidemia, unspecified
CPT/HCPCS: 36415; 80053; 80061; 83036; 85025

== ENCOUNTER 2020-06-23 12:39 | Day surgery (SDC) | payer MEDICARE, OTHER ==
[2020-06-20 15:44] VITALS: BMI 48.1
[2020-06-23 13:06] LABS: Glucose,Whole Blood 132 mg/dL (75-99)
[2020-06-23 13:16] LABS: Basophils # (A) 0.1 k/uL (0-0.2); Basophils % (A) 1 %; Eosinophils # (A) 0.2 k/uL (0-0.7); Eosinophils % (A) 2 %; HCT 51.8 % (39.0-53.0); Lymphocytes # (A) 1.7 k/uL (1.0-4.8); Lymphocytes % (A) 19 %; MCH 31.2 pg (25.0-35.0); MCHC 32.9 g/dL (31.0-37.0); MCV 94.6 fL (80.0-100.0); Monocytes # (A) 0.5 k/uL (0-1.0); Monocytes % (A) 5 %; Neutrophils # (A) 6.3 k/uL (1.3-7.7); Neutrophils % (A) 71 %; Platelet Count 329 k/uL (150-450); RBC 5.47 m/uL (4.30-5.90); RDW 13.2 % (11.5-15.5); WBC 8.9 k/uL (3.8-10.6)
[2020-06-23] MEDS ORDERED: SODIUM CHLORIDE 0.9% 1,000 ML IV ONE (13:22)
[2020-06-23] MEDS ORDERED: LIDOCAINE 1% INJ 10MG/ML (20 ML MDV) ONE (13:29)
[2020-06-23 13:39] LABS: African American GFR (CKD) >90 (>60 ml/min/1.73 sqM); Anion Gap 10 mmol/L; Blood Urea Nitrogen 17 mg/dL (9-20); Calcium 9.6 mg/dL (8.4-10.2); Carbon Dioxide 28 mmol/L (22-30); Chloride 101 mmol/L (98-107); Glucose 143 mg/dL (74-99); Non-African American GFR(CKD) >90 (>60 ml/min/1.73 sqM); Potassium 4.2 mmol/L (3.5-5.1); Sodium 139 mmol/L (137-145)
[2020-06-23] MEDS ORDERED: PROPOFOL 10 MG/ML 20 ML VIAL IV ONE (14:00)
[2020-06-23] MEDS ORDERED: NEOSTIGMINE 1 MG/ML 10 ML VIAL ONE (14:00)
[2020-06-23] MEDS ORDERED: FUROSEMIDE 10 MG/ML 2 ML VIAL ONE (14:00)
[2020-06-23] MEDS ORDERED: GLYCOPYRROLATE 0.2 MG/ML 2 ML VIAL ONE (14:00)
[2020-06-23] MEDS ORDERED: fentaNYL (PF) 50 MCG/ML 2 ML AMP ONE (14:00)
[2020-06-23] MEDS ORDERED: SUCCINYLCHOLINE CHLORIDE 100 MG/5 ML SYR IV ONE (14:00)
[2020-06-23] MEDS ORDERED: PHENYLEPHRINE 10 MG/ML VIAL ONE (14:00)
[2020-06-23] MEDS ORDERED: ePHEDrine SULFATE/0.9% NACL/PF 50 MG/5 ML SYRINGE IV ONE (14:00)
[2020-06-23] MEDS ORDERED: HEPARIN SODIUM,PORCINE 10,000 UNIT/ML 1 ML VIAL ONE (14:00)
[2020-06-23] MEDS ORDERED: HYDROmorphone (PF) 1 MG/ML ONE (14:00)
[2020-06-23] MEDS ORDERED: PROTAMINE SULFATE 10 MG/ML 5 ML VIAL IV ONE (14:00)
[2020-06-23] MEDS ORDERED: MIDAZOLAM 2 MG/2 ML VIAL ONE (14:00)
[2020-06-23] MEDS ORDERED: ROCURONIUM 10 MG/ML (10 ML VIAL) IV ONE (14:00)
--- NOTE | 2020-06-23 14:10 | P.EPPROC ---
- EP Procedure Note Electrophysiology Procedure Note: Diagnosis Cardiomyopathy, chronic, ischemic, underlying CAD Congestive heart failure, systolic, class II CHF On guideline directed medical treatment guideline directed Procedure: Single ICD implantation for management of risk of sudden cardiac Commutator Operator: Dr. Jackson Result: Single chamber ICD implantation, [employer]/L RV ICD lead: Single coil ICD, LDA 210Q-58 Pacing threshold 0.25 V at 0.5 ms, R waves and millivolts, pacing impedance 710 ohms High-voltage impedance 74 ohms ICD generator: [place] [id number], serial #[id number] Procedure details: Patient was brought to the EP lab in a fasting state. Written informed consent was obtained prior to the procedure. Options, pros and cons, benefits and risks and complications discussed with patient in detail prior to the procedure (shared decision making document, from [facility]). Importance of continuing medical treatment emphasized. Alternatives discussed. Patient would like to proceed with ICD implant. Left upper extremity venogram performed. 15 mL IV dye injected in the left arm. Patent axillary/subclavian vein The left pectoral area was prepped and draped as a protocol. IV antibiotics administered 1% lidocaine was used for local anesthesia. A 4 cm incision was made parallel to the deltopectoral groove, about 1.5 cm medial to it. The incision was carried down to the level of the pectoralis muscle and the subfascial pocket was made. Hemostasis was assured. The axillary vein access was obtained. Appropriately sized venous sheath was placed. ICD lead implanted in the right ventricle and screwed in. ICD lead tested for threshold, sensing, impedances and tested with high output pacing for diaphragmatic stimulation Lead secured to the underlying transverse muscle after removing sheaths . Pocket irrigated with antibiotic solution Leads connected to the biventricular ICD generator. Wound closed in 3 layers and dressed per protocol Biventricular ICD interrogated and programmed. Appropriate pacing parameters, antitachycardia therapies with antitachycardia pacing cardioversion defibrillations programmed. Patient tolerated the procedure well without any acute complications. See scanned device report in EMR for lead details DFT testing under anesthesia DC fibber shock was used to induce ventricular fibrillation. This was adequately and appropriately detected at least sensitivity and successfully internally defibrillated with 10 J shock, cathodal configuration Charge time 1.8 seconds shocking impedance 74 ohms no post shock noise No dropouts The device was then programmed to VVI at 40 beats a minute, MADIT RIT programming Patient tolerated the procedure well without difficulty acute complications
[2020-06-23] MEDS ORDERED: LIDOCAINE 1% INJ 10MG/ML (20 ML MDV) SQ ONE (14:57)
[2020-06-23] MEDS ORDERED: HEPARIN SOD,PORK IN 0.45% NACL 25,000 UNIT in 0.45% NACL 1 250ML.BAG IV ONE (15:23)
[2020-06-23] MEDS ORDERED: HEPARIN SODIUM (1,000 UNIT/ML) 1,000 UNIT in SODIUM CHLORIDE 0.9% 1,000 ML IRRIGATION ONE (16:41)
[2020-06-23] MEDS ORDERED: FUROSEMIDE 10 MG/ML 4 ML VIAL ONE (16:43)
[2020-06-23] MEDS ORDERED: FUROSEMIDE 10 MG/ML 4 ML VIAL IV ONE (16:44)
[2020-06-23] MEDS ORDERED: LACTATED RINGERS 1,000 ML IV ONE (16:45)
[2020-06-23] MEDS ORDERED: IOPAMIDOL-370 100ML BTL INJ ONE (16:47)
[2020-06-23] MEDS ORDERED: PANTOPRAZOLE 40 MG TABLET PO PRN (19:34)
[2020-06-23] MEDS ORDERED: HYDROcodone/APAP 5-325MG 1 EACH TAB PO PRN (19:35)
[2020-06-23] MEDS ORDERED: ACETAMINOPHEN TAB 325 MG TAB PO PRN (19:35)
[2020-06-23] MEDS ORDERED: ACETAMINOPHEN IV (For NPO) 1,000 MG in EMPTY BAG 1 BAG IVPB ONE (19:35)
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
--- NOTE | 2020-06-23 19:44 | P.PRLE ---
RE: Vince Yepez Dear Dev Clarke underwent an A. fib ablation with pulmonary vein isolation and linear ablation left atrium I have asked him to stop amiodarone at this time as below. Digoxin He will continue ELIQUIS lifelong He'll continue to follow with you and Dr. Daniels as before Thank you for entrusting me with the care of the patient Warm regards Sincerely Henry Jackson
--- NOTE | 2020-06-23 19:53 | P.EPPROC ---
- EP Procedure Note Electrophysiology Procedure Note: Procedure Diagnoses EP study/A. fib ablation Diagnosis Persistent Atrial fibrillation, symptomatic, refractory to therapy Failed amiodarone Result No left atrial appendage mass seen on intracardiac echo Successful A. fib ablation/pulmonary vein isolation of all veins Complete entrance block in all 4 veins confirmed No evidence for phrenic nerve injury Linear ablation in the left atrial roof. Left atrial roof was greater than 5 cm in length RF ablation along the left atrial posterior septum Esophageal deflection YES Electrical cardioversion with a synchronized shock across the chest YES Procedure details Patient was brought to the EP lab in a fasting state. Written informed consent was obtained prior to the procedure. Procedure performed under general anesthesia After initial muscle relaxant use, muscle relaxants were not given thereafter in order to assess phrenic nerve during procedure. Patient prepped and draped as per protocol Full cryo-set up with standard preparation of the cryoablation tools done. Femoral Venous access obtained on the right and left groins Venous and arterial Sheaths placed. Diagnostic catheters for the high right atrium, phrenic nerve stimulation and pacing, His bundle, RV and coronary sinus placed Intracardiac echo catheter placed. Long sheath placed in the right atrium Left and right transseptal catheterization performed under intracardiac echo guidance. Intravenous heparin with aCT above 300 Later, catheter positioning and balloon positioning in the left atrium, under intracardiac echo guidance Diagnostic EP study with Coronary sinus pacing and recording Baseline measurements Sinus cycle length 728 ms, NE 183, QRS 101, QT 395 ms AH 131 ms, HV 61 ms Atrial pacing performed from the high right atrium and the coronary sinus RV pacing, VA Wenckebach block greater than 600 ms AV node Wenckebach block from the coronary sinus 410 ms Sinus node recovery times at a pacing cycle length of 40 ms from the high right atrium was 1366 ms. Prolonged corrected sinus node recovery time Transseptal catheterization performed RA pressure 15/10/13 LA pressure 20/11/15 Transseptal catheterization performed with standard sheath. The cryoablation sheath was then placed with an over the wire exchange without any acute com plications. All 4 pulmonary veins were isolated in the following sequence: Left superior followed by left inferior followed by right superior followed by right inferior The cryo-ablation balloon was placed at the os of each vein 1.5 mL of IV dye was injected to confirm an occluded vein Goal during cryoablation was to achieve complete occlusion of the pulmonary vein, achieve -30 degrees C at 30 seconds and achieve -40 degrees C at 60 seconds and a time to effect of less than 60-90 seconds, . If not the balloon was repositioned to obtain this result After completion of Cryoblation with durations from 180-240 seconds, entrance block was confirmed with the Attain circular catheter in a roving fashion around the antrum of the pulmonary veins Phrenic nerve pacing was performed from the SVC, right innominate vein area and diaphragm voltage was monitored. Diaphragmatic contractions were also monitored manually for strength of contraction. Parameter goals for each cryo freeze Complete occlusion of the appropriate vein -30 degrees C by 30 seconds -40 degrees C by 60 seconds Minimum between minus 40-55 degrees C Thaw time greater than 10 seconds Balloon visualized by intracardiac echo The esophagus was intubated. Esophageal Temperature monitoring with a CIRCA catheter formed. Esophageal deflection for hypothermia of the esophagus below 30 degrees C Left superior pulmonary vein Complete isolation, entrance block, Left inferior pulmonary vein Complete isolation, entrance block Right superior pulmonary vein, during phrenic nerve pacing Phrenic nerve paresis Right inferior pulmonary vein, during phrenic nerve pacing Complete isolation, entrance block At the end of the procedure the Achieve catheter was once again used to check for entrance block Phrenic nerve stimulation was performed to confirm diaphragmatic stimulation the end of the procedure Cine fluoroscopy was performed at the very end of the procedure to confirm movement of both diaphragms with inspiration and expiration 3-D electro-anatomic mapping of the left atrium was performed The right-sided pulmonary vein was isolated posteriorly Anteriorly linear ablation was performed along the posterior septum, along areas of the left atrium that were fibrillating Patient had a dilated left atrium This linear ablation was very long from the roof of the left atrium down to the right inferior pulmonary vein, 6 o'clock position Following that isolated strands/signals were noted outside the jayjay of the right pulmonary veins and RF ablation had to be applied here to eliminate these isolated strands Linear ablation was performed in the roof. The roof was greater than 5 cm long This was interrogated at the end of the procedure Non-capture was documented Voltage mapping was performed along both lines Output pacing was performed to document completeness of the linear RF ablations The patient remained in atrial fibrillation Electrical cardioversion was performed and a detailed voltage mapping was performed once again to confirm completeness of the linear ablations At the end of the procedure the patient was extubated Heparin was reversed Venous sheaths were removed and hemostasis assured Procedures performed Diagnostic EP study CS pacing and recording Left and right transseptal catheterization 3D mapping) Intracardiac echocardiography Pulmonary vein isolation with transseptal and comprehensive EPS, [id number] Left atrial roof line, +[id number] Linear ablation, left atrium, +[id number] Electrical cardioversion with a synchronized shock across the chest [id number]
--- NOTE | 2020-06-23 19:55 | P.PCN ---
Preoperative Diagnosis: This is a long procedure, for atrial fibrillation Left atrium was very dilated Linear ablation was performed along the posterior septum This is a very long There was made Detailed interrogation was performed along this line in sinus rhythm today to ensure completeness of this time There were isolated islands of electrical activity. Sided jayjay, posterior to this line at the end of the procedure and findings the RF ablation had to be applied to eliminate these signals The roof line was also long and was greater than 5 cm The right superior pulmonary vein was a very large vein and partial phrenic nerve paresis was noted during cryoablation Therefore RF ablation was applied especially posteriorly to isolate this vein completely The entire procedure took over 5 hours
[2020-06-23] MEDS ORDERED: ONDANSETRON 4 MG/2 ML VIAL IVP ONE (20:21)
[2020-06-23] MEDS ORDERED: ACETAMINOPHEN IV (For NPO) 1,000 MG/100 ML VIAL IVPB ONE (20:21)
[2020-06-23] MEDS: SODIUM CHLORIDE 0.9% 1,000 ML IV SCH (21:06)
[2020-06-23] MEDS: APIXABAN 5 MG TAB PO SCH (21:09)
[2020-06-23] MEDS: diazePAM 5 MG TAB PO SCH (22:06)
[2020-06-23 22:31] LABS: Glucose,Whole Blood 162 mg/dL (75-99)
[2020-06-24 06:12] LABS: Glucose,Whole Blood 164 mg/dL (75-99)
[2020-06-24] MEDS: SODIUM CHLORIDE 0.9% 1,000 ML IV SCH (06:39)
[2020-06-24] MEDS ORDERED: GLIMEPIRIDE 4 MG TAB PO SCH (07:30)
[2020-06-24] MEDS ORDERED: METOPROLOL SUCCINATE (ER) 50 MG TAB.ER.24H PO SCH (09:00)
[2020-06-24] MEDS ORDERED: lisinopriL 20 MG TAB PO SCH (09:00)
[2020-06-24] MEDS ORDERED: ATORVASTATIN 40 MG TAB PO SCH (09:00)
[2020-06-24 09:03] VITALS: PULSE 87; RESP 16; TEMP 98.1
[2020-06-24] MEDS: diazePAM 5 MG TAB PO SCH (09:05)
[2020-06-24] MEDS: APIXABAN 5 MG TAB PO SCH (09:05)
--- NOTE | 2020-06-24 09:06 | DS ---
DISCHARGE SUMMARY Vince Yepez has persistent symptomatic atrial fibrillation. He underwent an atrial fibrillation ablation with pulmonary vein isolation and linear ablation in the septum of the left atrium and the roof of the left atrium. Thereafter, he underwent electrical cardioversion. He maintained sinus rhythm. No arrhythmias overnight. Blood pressure is 114/70 mmHg, pulse rate is in the normal range. He is in the 80s and 90s walking around in the room. He looks comfortable. The Thompson catheter is out. There is no hematoma in the groins. Breath sounds are clear. No rhonchi. No crackles. Normal heart sounds. Normal S1, normal S2. No JVD. Abdomen is soft, nontender. No lower extremity edema. IMPRESSION: Persistent symptomatic atrial fibrillation, status post atrial fibrillation ablation. PLAN: 1. Stop amiodarone completely. 2. Stop digoxin completely. 3. For future recurrences of atrial tachycardia, EP study and radiofrequency ablation should be considered. For any further episodes of atrial fibrillation, I would use either flecainide as long as there is no significant coronary artery disease or alternatively Multaq can be used 400 mg twice daily. 4. Eliquis to continue lifelong. MMODL / IJN: [id number] /
[2020-06-24 10:12] VITALS: BP 96/60
[2020-06-24 11:57] LABS: Glucose,Whole Blood 156 mg/dL (75-99)
[2020-06-25] MEDS ORDERED: metFORMIN 500 MG TAB PO SCH (07:30)
== END 2020-06-24 13:20 | disposition home or self-care (01) ==
LOC: CATHEP 12:39 → 1SOBS 19:46 → CATHEP 06-24 13:20
PROVIDERS: ATTEND Internal Medicine Clinical Cardiac Electrophysiology
DX: I48.19 Other persistent atrial fibrillation (principal); I25.10 Atherosclerotic heart disease of native coronary artery without angina pectoris; I11.0 Hypertensive heart disease with heart failure; I50.20 Unspecified systolic (congestive) heart failure; E11.42 Type 2 diabetes mellitus with diabetic polyneuropathy; Z86.718 Personal history of other venous thrombosis and embolism; H91.93 Unspecified hearing loss, bilateral; E78.5 Hyperlipidemia, unspecified; M19.90 Unspecified osteoarthritis, unspecified site; Z86.711 Personal history of pulmonary embolism; Z87.81 Personal history of (healed) traumatic fracture; K21.9 Gastro-esophageal reflux disease without esophagitis; G89.29 Other chronic pain; M54.5 Low back pain; M79.605 Pain in left leg; K59.00 Constipation, unspecified; Z87.19 Personal history of other diseases of the digestive system; Z90.89 Acquired absence of other organs; Z96.652 Presence of left artificial knee joint; Z98.42 Cataract extraction status, left eye; Z98.41 Cataract extraction status, right eye; Z98.890 Other specified postprocedural states; Z87.891 Personal history of nicotine dependence; Z80.8 Family history of malignant neoplasm of other organs or systems; Z80.0 Family history of malignant neoplasm of digestive organs; Z79.01 Long term (current) use of anticoagulants; Z79.899 Other long term (current) drug therapy; Z79.84 Long term (current) use of oral hypoglycemic drugs; Z88.5 Allergy status to narcotic agent
CPT/HCPCS: 85347; 92960; 93662; 93613; 93656; 93657; 80048; 85025; C1769 ×4; C1894 ×2; C1893; C1733; C1766; C1730; C1732; J2250; J2720; J1644 ×3; J1940 ×2; J2370; J2710; J2405; J2001; J3010; J1170; J0131; J0330; J2704; Q9967

== ENCOUNTER → 2020-11-22 | Outpatient (CLI) | payer MEDICARE, OTHER ==
--- NOTE | 2020-11-22 11:02 | US ---
EXAMINATION TYPE: US duplex aorta DATE OF EXAM: 11/22/2020 COMPARISON: 12/15/2018 CT CLINICAL HISTORY: Z13.6 SCREEN FOR CARDIOVASCULAR DISEASE. 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
== END | disposition home or self-care (01) ==
LOC: RADUSWWP 10:30
PROVIDERS: ATTEND Family Medicine
DX: Z13.6 Encounter for screening for cardiovascular disorders (principal); I71.2 Thoracic aortic aneurysm, without rupture; I10 Essential (primary) hypertension
CPT/HCPCS: 93979

== ENCOUNTER → 2020-12-06 | Outpatient (CLI) | payer MEDICARE, OTHER ==
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
== END | disposition home or self-care (01) ==
LOC: RADXRMAIN 15:05
PROVIDERS: ATTEND Family Medicine
DX: M19.072 Primary osteoarthritis, left ankle and foot (principal); M81.8 Other osteoporosis without current pathological fracture

== ENCOUNTER → 2021-06-29 | Outpatient (CLI) | payer MEDICARE, OTHER ==
[2021-06-29 15:57] VITALS: BP 143/85; PULSE 78; TEMP 98; BMI 49.5
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
== END ==
LOC: BARWHC3 15:04
PROVIDERS: ATTEND Surgery
DX: E66.01 Morbid (severe) obesity due to excess calories (principal); I48.91 Unspecified atrial fibrillation; H91.09 Ototoxic hearing loss, unspecified ear; E78.5 Hyperlipidemia, unspecified; I10 Essential (primary) hypertension; M19.90 Unspecified osteoarthritis, unspecified site; E11.40 Type 2 diabetes mellitus with diabetic neuropathy, unspecified; F41.9 Anxiety disorder, unspecified; Z86.718 Personal history of other venous thrombosis and embolism; Z68.42 Body mass index [BMI] 45.0-49.9, adult; Z87.891 Personal history of nicotine dependence; Z88.5 Allergy status to narcotic agent
CPT/HCPCS: 99211